=== PATIENT | male | born 1935 | race Caucasian/White ===

== ENCOUNTER 2022-09-28 15:47 | Outpatient (CLI) | payer OTHER, SELFPAY ==
[2022-09-28 22:19] LABS: Albumin* 4.2 g/dL (3.3-5.0)
[2022-09-28 22:22] LABS: Alanine Aminotransferase* 16 U/L (4-50); Alkaline Phosphatase* 113 U/L (40-150); Aspartate Amino Transferase* 26 U/L (12-35); Bilirubin Direct* 0.3 mg/dL (0.0-0.5); Bilirubin Total* 0.7 mg/dL (0.1-1.5); Total Protein* 7.1 g/dL (6.0-8.3)
== END 2022-09-28 15:48 | disposition home or self-care (01) ==
LOC: FRMREF 15:48
PROVIDERS: PCP Family Medicine; Visit Provider Dermatology
DX: Z79.899 Other long term (current) drug therapy (principal)
CPT/HCPCS: 80076